=== PATIENT | female | born 1965 | race Caucasian/White ===

== ENCOUNTER 2024-03-16 20:14 | Inpatient (IN) | payer OTHER ==
[~2024-03-16] VITALS: Ht 162.6 cm; Wt 60.9 kg
[2024-03-16] MEDS: fentaNYL 100 MCG/2 ML INJECTION IV ONE (21:52)
[2024-03-16 22:04] LABS: BASO # 0.1 10^3/uL (0.0-0.2); BASO % 0.6 % (0.0-1.0); EOS % 0.2 % (0.0-3.0); HEMATOCRIT 44.8 % (36.0-47.0); HEMOGLOBIN 15.3 g/dl (12.0-15.5); LYMPH # 1.3 10^3/uL (1.5-5.0); LYMPH % 9.5 % (24.0-44.0); MEAN CORPUSCULAR HEMOGLOBIN 31.7 pg (27.0-33.0); MEAN CORPUSCULAR HGB CONC 34.2 g/dl (32.0-36.5); MEAN CORPUSCULAR VOLUME 92.9 fl (80.0-96.0); MONO # 0.8 10^3/uL (0.0-0.8); MONO % 5.5 % (2.0-8.0); NEUTROPHILS # 11.6 10^3/uL (1.5-8.5); NEUTROPHILS % 83.9 % (36.0-66.0); PLATELET COUNT, AUTOMATED 299 10^3/uL (150-450); RED BLOOD COUNT 4.82 10^6/uL (4.00-5.40); WHITE BLOOD COUNT 13.8 10^3/uL (4.0-10.0)
[2024-03-16] MEDS ORDERED: THERTAB52 PO (22:12)
[2024-03-16] MEDS ORDERED: OMEP-173 PO (22:12)
[2024-03-16] MEDS ORDERED: ROSU10TA61 PO (22:12)
[2024-03-16] MEDS ORDERED: HOME MED LIST COMPLETE! XX SCH (22:15)
[2024-03-16] MEDS: fentaNYL 100 MCG/2 ML INJECTION IV PRN (22:39)
[2024-03-16 22:41] LABS: BLOOD UREA NITROGEN 16 MG/DL (9-23); CALCIUM LEVEL 10.2 MG/DL (8.3-10.6); CARBON DIOXIDE LEVEL 25 MMOL/L (20-31); CHLORIDE LEVEL 103 MMOL/L (98-107); CREATININE FOR GFR 0.75 MG/DL (0.55-1.30); GLOMERULAR FILTRATION RATE > 60.0 (>45); GLUCOSE, FASTING 134 MG/DL (74-106); POTASSIUM SERUM 4.5 MMOL/L (3.5-5.1); SODIUM LEVEL 140 MMOL/L (136-145)
[2024-03-17] VITALS (7 sets, daily range): BP systolic 126–147; BP diastolic 67–89; TEMP 96.6–100; O2SAT 95–98
[2024-03-17] MEDS: ONDANSETRON 4MG 2ML VIAL IV ONE (00:48)
[2024-03-17] MEDS: MORPHINE 4 MG/ML 1ML VIAL IV ONE (00:48)
[2024-03-17] MEDS ORDERED: ACETAMINOPHEN 500 MG TAB PO PRN (01:00)
[2024-03-17] MEDS ORDERED: oxyCODONE 5MG TAB PO PRN (01:00)
[2024-03-17 05:39] LABS: HEMATOCRIT 39.5 % (36.0-47.0); HEMOGLOBIN 13.4 g/dl (12.0-15.5); MEAN CORPUSCULAR HEMOGLOBIN 31.4 pg (27.0-33.0); MEAN CORPUSCULAR HGB CONC 33.9 g/dl (32.0-36.5); MEAN CORPUSCULAR VOLUME 92.5 fl (80.0-96.0); PLATELET COUNT, AUTOMATED 256 10^3/uL (150-450); RED BLOOD COUNT 4.27 10^6/uL (4.00-5.40); WHITE BLOOD COUNT 8.6 10^3/uL (4.0-10.0)
[2024-03-17 06:16] LABS: ALBUMIN 3.6 G/DL (3.2-5.2); ALKALINE PHOSPHATASE 72 U/L (35-104); ALT/SGPT 36 U/L (7.0-40); AST/SGOT 23 U/L (<34); BILIRUBIN,TOTAL 0.8 MG/DL (0.3-1.2); BLOOD UREA NITROGEN 13 MG/DL (9-23); CALCIUM LEVEL 9.6 MG/DL (8.3-10.6); CARBON DIOXIDE LEVEL 28 MMOL/L (20-31); CHLORIDE LEVEL 105 MMOL/L (98-107); CREATININE FOR GFR 0.64 MG/DL (0.55-1.30); GLOMERULAR FILTRATION RATE > 60.0 (>45); GLUCOSE, FASTING 107 MG/DL (74-106); MAGNESIUM LEVEL 1.9 MG/DL (1.8-2.4); POTASSIUM SERUM 4.9 MMOL/L (3.5-5.1); SODIUM LEVEL 141 MMOL/L (136-145); TOTAL PROTEIN 6.9 G/DL (5.7-8.2)
[2024-03-17] MEDS: ROPIvacaine 0.5% 30ML VIAL PN ONE (08:40)
[2024-03-17] MEDS: OMEPRAZOLE 20MG CAP PO SCH (09:00)
[2024-03-17] MEDS: ROSUVASTATIN 10 MG TAB (CRESTOR) PO SCH (09:00)
[2024-03-17] MEDS: SCOPOLAMINE 1MG TRANSDERMAL PATCH TOP SCH (09:54)
[2024-03-17] MEDS: MIDAZOLAM INJ 2MG/2ML VIAL IV PRN (09:55)
[2024-03-17] MEDS: LIDOCAINE 1% SDV 5ML VIAL PN ONE (10:05)
[2024-03-17] MEDS: EPINEPHrine INJ 1 MG/ML 1ML AMP PN ONE (10:10)
[2024-03-17] MEDS: dexAMETHasone 10MG/1ML VIAL PRES.FREE PN ONE (10:10)
[2024-03-17] MEDS ORDERED: METOCLOPRAMIDE INJ 10MG/2ML VIAL As Ordered ONE (10:17)
[2024-03-17] MEDS ORDERED: ROCURONIUM BROMIDE 50MG/5ML VIAL As Ordered ONE (10:17)
[2024-03-17] MEDS ORDERED: dexmedeTOMIDine (4MCG/ML)200MCG/50ML BTL (PRECEDEX) As Ordered ONE (10:17)
[2024-03-17] MEDS ORDERED: SUGAMMADEX SODIUM 500 MG/5 ML VIAL (BRIDION) As Ordered ONE (10:17)
[2024-03-17] MEDS ORDERED: MIDAZOLAM INJ 2MG/2ML VIAL As Ordered ONE (10:17)
[2024-03-17] MEDS ORDERED: ONDANSETRON 4MG 2ML VIAL As Ordered ONE (10:17)
[2024-03-17] MEDS ORDERED: LIDOCAINE 2% 100MG/5ML SDV (FOR ANES.) As Ordered ONE (10:17)
[2024-03-17] MEDS ORDERED: propofoL 200 MG/20 ML VIAL As Ordered ONE (10:17)
[2024-03-17] MEDS ORDERED: fentaNYL 100 MCG/2 ML INJECTION As Ordered ONE (10:17)
[2024-03-17] MEDS ORDERED: KETOROLAC 60MG 2ML VIAL As Ordered ONE (10:17)
[2024-03-17] MEDS ORDERED: ACETAMINOPHEN 1000MG/100ML IV BAG As Ordered ONE (11:00)
[2024-03-17] MEDS: ceFAZolin 2 GM/D5W 50 ML IV BAG As Ordered ONE (11:01)
[2024-03-17] MEDS: TRANEXAMIC ACID 100 MG/ML 10ML VIAL As Ordered ONE (11:04)
[2024-03-17] MEDS: VANCOMYCIN 1000MG/20ML VIAL As Ordered ONE (11:36)
[2024-03-17] MEDS: VANCOMYCIN 500MG/10ML VIAL As Ordered ONE (13:50)
[2024-03-17] MEDS ORDERED: ONDANSETRON 4MG 2ML VIAL IV PRN (14:15)
[2024-03-17] MEDS ORDERED: PROMETHAZINE 25MG/ML 1ML VIAL IV PRN (14:15)
[2024-03-17] MEDS ORDERED: HYDROMORPHONE HCL 0.5 MG/ 0.5 ML SYRINGE IV PRN (14:15)
[2024-03-17] MEDS ORDERED: fentaNYL 100 MCG/2 ML INJECTION IV PRN (14:15)
[2024-03-17] MEDS ORDERED: LR 1,000 ML IV SCH (15:50)
[2024-03-17] MEDS: ACETAMINOPHEN 500 MG TAB PO PRN (19:21)
[2024-03-18] VITALS: BP 106/58; TEMP 98.5; O2SAT 98
[2024-03-18 04:30] VITALS: BP 114/63; TEMP 97.8; O2SAT 97
[2024-03-18 08:00] VITALS: BP 116/60; TEMP 98.5; O2SAT 97
[2024-03-18] MEDS ORDERED: TRAN1DIS4 TOP (10:32)
[2024-03-18] MEDS ORDERED: ACET-861 PO (10:32)
[2024-03-18] MEDS ORDERED: IBUP-1114 PO (10:38)
[2024-03-18] MEDS ORDERED: OXYC-1 PO (10:38)
[2024-03-18] MEDS ORDERED: SENO8.6T10 PO (10:40)
[2024-03-18] MEDS ORDERED: MILKSUS3 PO (11:46)
[2024-03-18] MEDS ORDERED: MIRA3350 PO (11:46)
[2024-03-18] MEDS ORDERED: OXYC-517 PO (11:46)
[2024-03-18 12:00] VITALS: BP 131/72; TEMP 98.6; O2SAT 97
[2024-03-18 13:13] LABS: KETONE, URINE AUTO RFX NEGATIVE (NEGATIVE); LEUKOCYTE ESTERASE UR AUTO RFX NEGATIVE (NEGATIVE); NITRITE, URINE AUTO RFX NEGATIVE (NEGATIVE); RBC, URINE AUTO RFX 0 /HPF (0-3); SQUAM EPITHELIAL CELL UR AURFX 0 /HPF (0-6); WBC, URINE AUTO RFX 1 /HPF (0-3)
[2024-03-18] MEDS: ceFAZolin SOD 2 GM in IV 1 EA IV ONE (14:31)
[2024-03-18] MEDS: KETOROLAC 30 MG/ML 1ML VIAL IV PRN (14:33)
[2024-03-18 16:30] VITALS: BP 109/68; TEMP 98.7; O2SAT 95
[2024-03-18 20:00] VITALS: BP 111/64; TEMP 99.2; O2SAT 96
[2024-03-19] VITALS: BP 126/88; TEMP 97.2; O2SAT 97
[2024-03-19 03:59] VITALS: BP 124/82; TEMP 97.7; O2SAT 97
[2024-03-19 08:00] VITALS: BP 119/69; TEMP 99.6; O2SAT 95
[2024-03-19] MEDS ORDERED: ECOT81TA5 PO (10:33)
== END 2024-03-19 12:08 | disposition home or self-care (01) | DRG 494 ==
LOC: M ED 20:14 → M ED INP 22:17 → M PED 03-17 15:45
PROVIDERS: ADMIT Student in an Organized Health Care Education/Training Program; ATTEND General Practice
PROC: 0QSG34Z Reposition Right Tibia with Internal Fixation Device, Percutaneous Approach (ICD-10-PCS; 2024-03-17)
PROC: 0QSJ34Z Reposition Right Fibula with Internal Fixation Device, Percutaneous Approach (ICD-10-PCS; principal; 2024-03-17 09:30)
DX: S82.851A Displaced trimalleolar fracture of right lower leg, initial encounter for closed fracture (principal); S82.431A Displaced oblique fracture of shaft of right fibula, initial encounter for closed fracture; W08.XXXA Fall from other furniture, initial encounter; Y93.E9 Activity, other interior property and clothing maintenance; Y99.8 Other external cause status; Y92.018 Other place in single-family (private) house as the place of occurrence of the external cause; E78.5 Hyperlipidemia, unspecified; K21.9 Gastro-esophageal reflux disease without esophagitis; R50.82 Postprocedural fever; R91.8 Other nonspecific abnormal finding of lung field; Z79.899 Other long term (current) drug therapy